=== PATIENT | male | born 1980 | race Caucasian/White ===

== ENCOUNTER 2016-11-09 11:18 | Emergency (ER) | payer BC, MEDICAID ==
[~2016-11-09] VITALS: Ht 185.4 cm; Wt 70.3 kg
[2016-11-09 11:20] VITALS: BP_SYST 142
[2016-11-09] MEDS ORDERED: ALPRAZolam 0.25 MG TABLET PO ONE (11:45)
[2016-11-09 11:55] VITALS: BP_SYST 142
== END 2016-11-09 11:55 | disposition home or self-care (01) ==
LOC: SED 11:18
DX: F41.9 Anxiety disorder, unspecified (principal); J45.909 Unspecified asthma, uncomplicated
CPT/HCPCS: 93005; 99283

== ENCOUNTER 2016-12-08 13:57 | Emergency (ER) | payer BC, MEDICAID ==
[~2016-12-08] VITALS: Ht 185.4 cm; Wt 70.3 kg
[2016-12-08 14:42] VITALS: BP_SYST 115
[2016-12-08 16:55] LABS: BASOPHILS % (AUTO) 0.6 % (0.0-2.0); EOSINOPHILS # (AUTO) 0.1 K/uL (0.0-0.4); LYMPHOCYTES # (AUTO) 1.2 K/uL (1.0-5.5); MEAN CORPUSCULAR HEMOGLOBIN 30 pg (27-31); MEAN CORPUSCULAR HGB CONC 33 % (32-36); MONOCYTES # (AUTO) 0.3 K/uL (0.0-1.0)
[2016-12-08 17:10] LABS: EOSINOPHILS % (AUTO) 1.6 % (0.0-4.0); HEMATOCRIT 51.5 % (36-54); HEMOGLOBIN 16.8 g/dL (14.0-18.0); LYMPHOCYTES % (AUTO) 22.8 % (20.5-51.5); MEAN CORPUSCULAR VOLUME 92 fL (79.0-98.0); MONOCYTES % (AUTO) 6.1 % (1.7-9.3); NEUTROPHILS # (AUTO) 3.5 K/uL (1.8-7.7); NEUTROPHILS % (AUTO) 68.9 % (40.0-70.0); PLATELET COUNT (AUTO) 167 K/uL (130-430); RED BLOOD CELL COUNT(AUTO) 5.62 MIL/uL (4.2-6.2); WHITE BLOOD COUNT (AUTO) 5.1 K/uL (4.8-10.8)
[2016-12-08 17:14] LABS: CALCIUM 9.2 mg/dL (8.4-11.0); CREATININE 1.04 mg/dL (0.55-1.30); POTASSIUM 4.1 mmol/L (3.5-5.1)
[2016-12-08 17:19] LABS: ALBUMIN 4.6 g/dL (3.4-4.8); TOTAL BILIRUBIN 0.5 mg/dL (0.0-1.0)
[2016-12-08 17:20] LABS: PROTHROMBIN TIME 11.2 SECS (9.5-12.5)
[2016-12-08 19:42] VITALS: BP_SYST 120
== END 2016-12-08 19:42 | disposition home or self-care (01) ==
LOC: SED 13:57
DX: R07.89 Other chest pain (principal); J45.909 Unspecified asthma, uncomplicated
CPT/HCPCS: 36415; 71010; 80053; 82550-TC; 83735-TC; 83880; 84484; 85025; 85610-TC; 85730-TC; 93005; 99285